=== PATIENT | female | born 1975 | race Caucasian/White ===

== ENCOUNTER 2019-09-24 19:17 | Outpatient (REF) | payer SELFPAY ==
[2019-09-24 21:46] LABS: D-Dimer 369 ng/mlFEU (<500)
== END 2019-09-24 19:37 ==
LOC: NCHCN 19:17
PROVIDERS: PCP Nurse Practitioner Family; Visit Provider Nurse Practitioner Family
DX: R22.42 Localized swelling, mass and lump, left lower limb (principal)
CPT/HCPCS: 85379

== ENCOUNTER 2019-10-16 08:57 | Outpatient (REF) | payer SELFPAY ==
[2019-10-16 21:28] LABS: ALT 26 U/L (14-59); AST 17 U/L (15-37); Albumin 3.9 g/dL (3.4-5.0); Alkaline Phosphatase 127 U/L (46-116); Bilirubin, Total 0.3 mg/dL (0.2-1.0); CREATININE 0.96 mg/dL (0.55-1.02); Calcium 8.9 mg/dL (8.5-10.1); Calculated LDL 115 mg/dL (<100); Chloride 101 mmol/L (98-107); Cholesterol 171 mg/dL (<200); Glucose 116 mg/dL (74-106); HDL Cholesterol 44 mg/dL (40-60); Potassium 4.6 mmol/L (3.5-5.1); Sodium 138 mmol/L (136-145); Total Protein 7.5 g/dL (6.4-8.2); Triglyceride 61 mg/dL (<150)
[2019-10-16 21:46] LABS: BUN 17 mg/dL (7-18)
== END 2019-10-16 09:17 ==
LOC: NCHCN 08:57
PROVIDERS: PCP Nurse Practitioner Family; Visit Provider Nurse Practitioner Family
DX: I10 Essential (primary) hypertension (principal); Z13.220 Encounter for screening for lipoid disorders; Z13.1 Encounter for screening for diabetes mellitus
CPT/HCPCS: 80053; 80061; 83036

== ENCOUNTER 2020-11-15 14:40 | Outpatient (REF) | payer SELFPAY ==
[2020-11-15 15:28] LABS: Anion Gap 8.8 mmol/L (3-11); BUN 16 mg/dL (7-18); CO2 28.2 mmol/L (21.0-32.0); CREATININE 0.8 mg/dL (0.55-1.02); Calcium 8.8 mg/dL (8.5-10.1); Chloride 103 mmol/L (98-107); Glucose 145 mg/dL (74-106); Potassium 4.5 mmol/L (3.5-5.1); Sodium 140 mmol/L (136-145)
[2020-11-15 15:54] LABS: Hemoglobin A1C 5.5 % (<5.7)
== END 2020-11-15 14:41 | disposition home or self-care (01) ==
LOC: NCHCN 14:40
PROVIDERS: PCP Nurse Practitioner Family; Visit Provider Nurse Practitioner Family
DX: I10 Essential (primary) hypertension (principal); R73.03 Prediabetes
CPT/HCPCS: 80048; 83036

== ENCOUNTER 2020-12-27 13:32 | Outpatient (REF) | payer OTHER, SELFPAY ==
[2020-12-27 20:49] LABS: COMMENT (LAB VIEW ONLY) 27.64 mg/dL; Microalb ug/mg Crea 7.6 ug/mg Cr
[2020-12-27 20:51] LABS: Anion Gap 11.2 mmol/L (3-11); BUN 16 mg/dL (7-18); CO2 25.8 mmol/L (21.0-32.0); CREATININE 0.9 mg/dL (0.55-1.02); Calcium 9.2 mg/dL (8.5-10.1); Chloride 101 mmol/L (98-107); Glucose 124 mg/dL (74-106); Potassium 3.5 mmol/L (3.5-5.1); Sodium 138 mmol/L (136-145)
== END 2020-12-27 13:33 | disposition home or self-care (01) ==
LOC: NCHCN 13:32
PROVIDERS: PCP Nurse Practitioner Family; Visit Provider Nurse Practitioner Family
DX: I10 Essential (primary) hypertension (principal); R73.03 Prediabetes; E66.9 Obesity, unspecified
CPT/HCPCS: 80048; 82043; 82570

== ENCOUNTER 2022-05-03 18:22 | Outpatient (REF) | payer OTHER, SELFPAY ==
[2022-05-03 15:09] LABS: Hemoglobin A1C 6.2 % (<5.7)
[2022-05-03 15:18] LABS: ALT 20 U/L (14-59); AST 17 U/L (15-37); Albumin 3.7 g/dL (3.4-5.0); Alkaline Phosphatase 93 U/L (46-116); Anion Gap 4.4 mmol/L (3-11); BUN 23 mg/dL (7-18); Bilirubin, Total 0.5 mg/dL (0.2-1.0); CO2 30.6 mmol/L (21.0-32.0); Calculated LDL 95 mg/dL (<100); Chloride 101 mmol/L (98-107); Cholesterol 149 mg/dL (<200); Estimated GFR 69.93 (mL/min/1.73m2); Glucose 115 mg/dL (74-106); HDL Cholesterol 43 mg/dL (40-60); Sodium 136 mmol/L (136-145); Total Protein 7.6 g/dL (6.4-8.2); Triglyceride 59 mg/dL (<150)
== END 2022-05-03 18:23 | disposition home or self-care (01) ==
LOC: NCHCN 18:22
PROVIDERS: PCP Nurse Practitioner Family; Visit Provider Nurse Practitioner Family
DX: I10 Essential (primary) hypertension (principal); E66.9 Obesity, unspecified; R73.03 Prediabetes; K21.9 Gastro-esophageal reflux disease without esophagitis
CPT/HCPCS: 80053; 80061; 83036

== ENCOUNTER 2022-10-16 09:43 | Outpatient (REF) | payer OTHER, SELFPAY ==
--- NOTE | 2022-10-16 08:45 | PAPFT_PTH ---
PATIENT: Suzanna Goyal LOC: [facility]#:[id number] AGE/SX: 47/F ROOM: RE10/16/[address]: Zahira Wilburn : 1975 BED: DIS: 10/16/2022 SPEC #: [id number] RECD: 10/16/22 18:05 STATUS: KEVIN REAlejandro #: [id number] NATHANIEL: 10/16/22 08:[address]: Zahira Wilburn DEPT: [facility] Cytology RECD BY: Priti Elise ENTERED: 10/16/22 18:05 SP TYPE: PAPFT OTHR DR: Lucille Cho Tissues: 1 - CX/ENDOCX FOR PAP SMEARS Procedures: PAP THIN PREP/[facility] Screening HPV DNA PROBE Comments: [id number] (CHLAMYDIA/GC)
[2022-10-17 14:27] LABS: Chlamydia Result Negative (Negative); GC Result Negative (Negative)
== END 2022-10-16 09:44 | disposition home or self-care (01) ==
LOC: NCHCN 09:43
PROVIDERS: PCP Nurse Practitioner Family; Visit Provider Nurse Practitioner Family
DX: Z11.3 Encounter for screening for infections with a predominantly sexual mode of transmission (principal); Z12.4 Encounter for screening for malignant neoplasm of cervix; Z11.51 Encounter for screening for human papillomavirus (HPV)
CPT/HCPCS: 87491; 87591; 88142; 87624

== ENCOUNTER 2024-11-10 16:21 | Outpatient (REF) | payer SELFPAY ==
[2024-11-10 21:25] LABS: ALT 19 U/L (14-59); AST 15 U/L (15-37); Alkaline Phosphatase 120 U/L (46-116); Anion Gap 6.1 mmol/L (3-11); BUN 26 mg/dL (7-18); Bilirubin, Total 0.4 mg/dL (0.2-1.0); CO2 30.9 mmol/L (21.0-32.0); Calcium 9.2 mg/dL (8.5-10.1); Calculated LDL 128 mg/dL (<100); Chloride 99 mmol/L (98-107); Cholesterol 186 mg/dL (<200); Estimated GFR 68.63 (mL/min/1.73m2); Glucose 92 mg/dL (74-106); HDL Cholesterol 45 mg/dL (>or=50); Potassium 3.8 mmol/L (3.5-5.1); Sodium 136 mmol/L (136-145); Triglyceride 66 mg/dL (<150)
== END 2024-11-10 16:22 | disposition home or self-care (01) ==
LOC: NCHCN 16:21
PROVIDERS: PCP Nurse Practitioner Family; Visit Provider Nurse Practitioner Family
DX: I10 Essential (primary) hypertension (principal); R73.03 Prediabetes; Z51.81 Encounter for therapeutic drug level monitoring
CPT/HCPCS: 80053; 80061; 83036; 83735